=== PATIENT | male | born 1940 | race Caucasian/White ===

== ENCOUNTER 2017-05-31 14:19 | Outpatient (CLI) | payer MEDICARE | END 2017-05-31 14:20 | disposition home or self-care (01) | LOC: CP 14:19 | PROVIDERS: ATTEND Internal Medicine | DX: J44.9 Chronic obstructive pulmonary disease, unspecified (principal) | CPT/HCPCS: 94060 ==

== ENCOUNTER 2017-06-05 10:01 | Emergency (ER) | payer MEDICARE ==
[2017-06-05 10:42] LABS: #Basophils 0.1 thou/uL (0.0-0.2); #Eosinphils 0.1 thou/uL (0.0-0.7); #Neutrophils 9.9 thou/uL (1.40-6.50); %Basophils 0.7 % (0.0-1.0); %Lymphocytes 15.5 % (21.0-51.0); %Monocytes 7.6 % (0.0-10.0); Hematocrit 49.6 % (42.0-52.0); Mean Platelet Volume 7.9 fL (7.4-10.4); Red Blood Cell (RBC) Count 5.42 mill/uL (4.70-6.10); White Blood Cell (WBC) Count 13.1 thou/uL (4.8-10.8)
[2017-06-05 10:51] LABS: Anion Gap 18 mmol/L (10-20); BUN (Urea Nitrogen) 53 mg/dL (8.4-25.7); Calc. Creatinine Clearance 0 mL/min (70-130); Calcium 10.7 mg/dL (7.8-10.44); Carbon Dioxide 22 mmol/L (23-31); Chloride 101 mmol/L (98-107); Estimated GFR-MDRD 36
[2017-06-05 10:58] LABS: Troponin I 0.023 ng/mL (< 0.028)
--- NOTE | 2017-06-05 11:18 | RAD ---
CHEST 2 VIEWS; Date: 06/05/17 HISTORY: Hypotension. Shortness of breath. Chest pain. COMPARISON: 05/18/17. FINDINGS: Normal cardiac silhouette. Pulmonary vessels and hilum are normal. Right costophrenic angle is clear. There is blunting of the left costophrenic angle. Parenchymal changes in left lung base are noted. T here is increased opacification in the right upper lobe suggesting infiltrate superimposed upon chron ic change. No pneumothorax. IMPRESSION: Multilobar pneumonia. Continued surveillance. POS: [facility]
--- NOTE | 2017-07-05 14:38 | EKG ---
Test Reason : HYPOTENSION Blood Pressure : / mmHG Vent. Rate : 077 BPM Atrial Rate : 077 BPM P-R Int : 138 ms QRS Dur : 100 ms QT Int : 392 ms P-R-T Axes : -05 -11 -07 degrees QTc Int : 443 ms Normal sinus rhythm Minimal voltage criteria for LVH, may be normal variant Borderline ECG Confirmed by SHERLEY OLGUIN, RONNI ([id number]), content editor CORA IGLESIAS ([id number]) on 07/05/2017 2:38:08 PM Referred By: SHERLEY Confirmed By:RONNI LEPE MD
== END 2017-06-05 12:49 | disposition home or self-care (01) ==
LOC: ERS 10:01
DX: I95.2 Hypotension due to drugs (principal); T50.905A Adverse effect of unspecified drugs, medicaments and biological substances, initial encounter; E78.5 Hyperlipidemia, unspecified; I10 Essential (primary) hypertension; Z79.82 Long term (current) use of aspirin; Z79.899 Other long term (current) drug therapy
CPT/HCPCS: 71020; 80048; 82553; 84484; 85025; 93005; 96360; 96361

== ENCOUNTER 2017-06-06 13:22 | Emergency (ER) | payer MEDICARE ==
[2017-06-06 14:17] LABS: #Basophils 0.1 thou/uL (0.0-0.2); #Eosinphils 0.1 thou/uL (0.0-0.7); #Lymphocytes 1.7 thou/uL (1.20-3.40); #Monocytes 0.9 thou/uL (0.11-0.59); #Neutrophils 9.1 thou/uL (1.40-6.50); %Basophils 0.8 % (0.0-1.0); %Eosinophils 0.5 % (0.0-10.0); %Lymphocytes 14.1 % (21.0-51.0); %Monocytes 7.5 % (0.0-10.0); Hematocrit 47.1 % (42.0-52.0); Mean Platelet Volume 7.7 fL (7.4-10.4); Red Blood Cell (RBC) Count 5.08 mill/uL (4.70-6.10); White Blood Cell (WBC) Count 11.8 thou/uL (4.8-10.8)
[2017-06-06 14:39] LABS: ALT (SGPT) 399 U/L (8-55); AST (SGOT) 303 U/L (5-34); Alkaline Phosphatase 724 U/L (40-150); Anion Gap 15 mmol/L (10-20); BUN (Urea Nitrogen) 41 mg/dL (8.4-25.7); Bilirubin, Total 2.8 mg/dL (0.2-1.2); Calc. Creatinine Clearance 0 mL/min (70-130); Calcium 9.9 mg/dL (7.8-10.44); Carbon Dioxide 28 mmol/L (23-31); Chloride 96 mmol/L (98-107); Estimated GFR-MDRD 51; Globulin 3.6 g/dL (2.4-3.5); Lipase 173 U/L (8-78); Protein, Total 6.9 g/dL (5.8-8.1)
--- NOTE | 2017-06-06 18:26 | CT ---
CT OF THE ABDOMEN AND PELVIS WITHOUT CONTRAST 06/06/17 PROVIDED CLINICAL HISTORY: Abnormal hepatic enzymes. FINDINGS: The visualized lung bases demonstrate emphysematous changes and left basilar interstitial prominence which may reflect changes of fibrosis. There are innumerable poorly defined hepatic hypodensities present diffusely, highly suspicious for d iffuse hepatic metastatic disease. The solid abdominal organs are suboptimally evaluated without IV contrast material but demonstrate an otherwise unremarkable unenhanced CT appearance with the exception of a partially calcified cystic s tructure at the inferior pole of the right kidney. There is no bowel dilatation, inflammatory fat stranding or lymph node enlargement apparent. There is minimal free intraperitoneal fluid about the right hepatic margin and within the pelvic cul-de-sac. The osseous structures demonstrate no concerning osteoblastic or osteolytic lesions. Bilateral fat co ntaining inguinal hernias are seen, small. Degenerative changes are noted involving the spine. Atherosclerotic vascular calcification is noted. IMPRESSION: 1. Innumerable hypodense masses within the liver compatible with hepatic metastatic disease. Nathalia rce is not evident on the basis of this study. 2. Trace free intraperitoneal fluid, nonspecific. 3. Prominence of the pulmonary interstitium of the left lung base may reflect changes of fibrosi s. POS: [facility]
--- NOTE | 2017-06-06 20:58 | ULT ---
RIGHT UPPER QUADRANT ULTRASOUND: 06/06/17 PROVIDED CLINICAL HISTORY: Elevated LFTs. FINDINGS: Correlation is made with a CT examination performed earlier same date. Markedly heterogeneous appeara nce to the liver is demonstrated compatible with the CT appearance suggesting hepatic disease. No annabelle dence intrahepatic or extrahepatic biliary ductal dilatation. The gallbladder is contracted. Pancreas is largely obscured. Right kidney demonstrates no hydronephrosis or mass. IMPRESSION: Heterogeneous appearance to the liver compatible with the findings on prior CT suggesting diffuse hep atic metastatic disease. POS: [facility]
== END 2017-06-06 19:27 | disposition home or self-care (01) ==
LOC: ERS 13:22
DX: C22.0 Liver cell carcinoma (principal); C79.9 Secondary malignant neoplasm of unspecified site; E78.5 Hyperlipidemia, unspecified; I10 Essential (primary) hypertension; Z79.899 Other long term (current) drug therapy
CPT/HCPCS: 36415; 74176; 76705; 80053; 82150; 83690; 83880; 85025

== ENCOUNTER 2017-06-07 11:01 | Outpatient (CLI) | payer MEDICARE ==
--- NOTE | 2017-06-07 14:44 | CT ---
NONCONTRAST CT OF THE THORAX: Indication: History of metastatic disease within the abdomen and pelvis found on recent CT evaluation . Concern for chest lesion based on chest radiograph. FINDINGS: There is calcification seen within the inferior aspect of both thyroid glands. There is a large right suprahilar mass lesion measuring approximately 2.5 x 5.8 cm in size. The chelsea ns of the lesion are poorly delineated without IV contrast. There is prominent reticular nodularity s een within the right upper lobe suspicious for lymphangitic spread of disease versus post obstructive pneumonia. There are enlarged lymph nodes within the right hilar region and mediastinum. One of the largest in the mediastinum measures 2.1 cm on image 27 of series 2. There is 1.5 cm lesion seen withi n the right paratracheal region. There are scattered coronary artery and thoracic calcifications. No definite enlarged axillary lymph nodes are evident. The upper abdomen is as detailed on the CT abdome n dated 06-06-17. There is severe emphysematous change. No definite pleural effusion or pneumothorax demonstrated. No d efinite acute osseous abnormality is evident. There are scattered degenerative and osteoarthritic lupe nge. IMPRESSION: 1. Large right suprahilar mass with suspected lymphangitic spread of the tumor into the right upper l obe and regional lymph node involving the right hilar region and mediastinum. 2. Emphysema. 3. Calcified lesions in the inferior aspect of both thyroid glands. Recommend thyroid ultrasound for additional characterization. Code T POS: [facility]
== END 2017-06-07 11:02 | disposition home or self-care (01) ==
LOC: CT 11:01
PROVIDERS: ATTEND Internal Medicine
DX: R93.8 Abnormal findings on diagnostic imaging of other specified body structures (principal); J43.9 Emphysema, unspecified; R91.8 Other nonspecific abnormal finding of lung field; E07.89 Other specified disorders of thyroid
CPT/HCPCS: 71250

== ENCOUNTER 2017-06-14 10:39 | Outpatient (CLI) | payer MEDICARE ==
--- NOTE | 2017-06-14 15:33 | NM ---
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 COMPARISON: None. TECHNIQUE: The patient was administered 30.50 millicuries of technetium 99m MDP intravenously. After an appropr iate delay, whole body imaging was performed. FINDINGS: Despite giving an appropriate dose of radiotracer, the overall uptake by the osseous structures is so mewhat less than optimal. Additionally, there appear to be photopenic areas involving the anterior a spect of the left and right kidneys. There are no corresponding abnormalities on recent CT. There a re questionable areas of photopenia involving both knees. Findings may in part be due to inadequate uptake of the tracer. There does appear to be radiotracer localization involving the left and right shoulder due to degenerative change. Additional radiotracer localization involving the cervical spin e, likely due to degenerative change, is noted. No obvious scintigraphic evidence of osseous metastasis. Joint contamination projects over the expected region of the perineum. IMPRESSION: 1. Suboptimal evaluation due to poor uptake of the radiotracer by the osseous structures. No defini te scintigraphic evidence of osseous metastasis. 2. Decreased uptake in both kidneys. Correlate for possible decreased renal function. 3. Possible photopenia involving both knees. Correlate for possible arthroplasty. Of note, the willian flowers is a poor historian. POS: [facility]
== END 2017-06-14 10:40 | disposition home or self-care (01) ==
LOC: NM 10:39
PROVIDERS: ATTEND Internal Medicine Hematology & Oncology
DX: C34.01 Malignant neoplasm of right main bronchus (principal)
CPT/HCPCS: 78306; 85610; 85730; A9503; 36415

== ENCOUNTER 2017-06-15 11:52 | Inpatient (IN) | payer MEDICARE ==
[2017-06-15 13:34] LABS: ALT (SGPT) 1337 U/L (8-55); AST (SGOT) 2067 U/L (5-34); Albumin 2.9 g/dL (3.4-4.8); Alkaline Phosphatase 871 U/L (40-150); Anion Gap 19 mmol/L (10-20); BUN (Urea Nitrogen) 51 mg/dL (8.4-25.7); Bilirubin, Total 12.6 mg/dL (0.2-1.2); Calc. Creatinine Clearance 0 mL/min (70-130); Calcium 8.9 mg/dL (7.8-10.44); Carbon Dioxide 21 mmol/L (23-31); Chloride 91 mmol/L (98-107); Estimated GFR-MDRD 36; Globulin 2.9 g/dL (2.4-3.5); Glucose 98 mg/dL (83-110); Lipase 444 U/L (8-78); Potassium 4.5 mmol/L (3.5-5.1); Protein, Total 5.8 g/dL (5.8-8.1); Sodium 126 mmol/L (136-145)
[2017-06-15 13:38] LABS: Troponin I 0.106 ng/mL (< 0.028)
[2017-06-15 13:49] LABS: CKMB 10.6 ng/mL (0-6.6)
[2017-06-15 13:53] LABS: Band 5 % (5-11); Eosinophils 1 % (0-10); Hemoglobin 14.5 g/dL (14.0-18.0); Lymphocytes 23 % (21-51); MDiff Complete? YES; Mean Corpuscular HGB CONC 33.7 g/dL (32.0-36.0); Mean Corpuscular Hemoglobin 30.6 pg (27.0-31.0); Mean Corpuscular Volume 90.8 fl (80.0-94.0); Mean Platelet Volume 9.7 fL (7.4-10.4); Monocytes 5 % (0-10); Neutrophil 64 % (42-75); Nucleated RBC 3 % (0); PLT Morphology Comment Appears Decreased; Platelet Count 38 thou/uL (130-400); Polychromasia SLIGHT = 2-3 cells (100X) (0-2/hpf); RBC Distribution Width 13.8 % (11.5-14.5); Reactive Lymphocytes 2 % (0-10); Red Blood Cell (RBC) Count 4.74 mill/uL (4.70-6.10); White Blood Cell (WBC) Count 11.2 thou/uL (4.8-10.8)
--- NOTE | 2017-06-15 14:08 | RAD ---
CHEST ONE VIEW: History: Hypotension, chest pain, dyspnea. Comparison: 06-01-17 FINDINGS: Cardiac silhouette is magnified by projection. Right suprahilar mass and infiltrates involving the ri ght upper and left lower lobes are similar in appearance to the prior study. Infiltrate at the right lower lobe has progressed somewhat. Mediastinum remains midline. No evidence of pneumothorax. monitor technician leads overlie the chest. IMPRESSION: Interval progression of right lower lobe infiltrate. Right upper lobe and left lower lobe infiltrates appear stable. POS: [facility]
[2017-06-15 14:15] LABS: INR-International Normal Ratio 2.2; PTT 42.7 SEC (22.9-36.1); Prothrombin Time 24.8 SEC (12.0-14.7)
[2017-06-15 15:15] LABS: Bilirubin Large (Negative); Clarity TURBID (Clear); Glucose, Urine (Dipstick) Negative (Negative); Leukocyte Trace (Negative); Nitrite Negative (Negative); Specific Gravity, Urine 1.036 (1.002-1.036); Urobilinogen 0.2 mg/dL (0.2-1.0); pH, Urine 5.5 (5.0-9.0)
[2017-06-15 15:21] LABS: Bacteria/HPF None Seen HPF (None Seen)
[2017-06-15 15:36] LABS: Blood, Urine Large (Negative); Protein, Urine (Dipstick) 100 mg/dL (Neg-Trace)
[2017-06-15 15:37] LABS: Crystals/HPF 1+ AMORPH URATES HPF (Negative); Renal Epithelial 0-3 HPF (0-3); Transitional Epithelial 0-3 HPF (0-3); Yeast-All Forms None Seen HPF (None Seen)
[2017-06-15 15:38] LABS: Hyaline Casts/LPF 0-3 HYALINE CAST LPF (0-3 Hyaline)
[2017-06-15] MEDS ORDERED: Acetaminophen 325 MG TAB PO PRN (16:18)
[2017-06-15] MEDS ORDERED: Ondansetron HCl/PF 4 MG/2 ML Vial IVP PRN (16:18)
[2017-06-15] MEDS ORDERED: cefTRIAXone\\ROCEPHIN 1 GM in Sodium Chloride 0.9% 100 ML IVPB SCH (16:30)
--- NOTE | 2017-06-15 17:19 | HP ---
PRIMARY CARE PROVIDER: Dr. Katelyn Carr. ONCOLOGIST: Dr. Fallon Walter. HISTORY OF PRESENT ILLNESS: The patient was in Dr. Carr's office today. He had a blood pressure o f about 70, sent to the emergency room by ambulance, received IV fluids. He says he was a little andrei rt of breath walking, reports he has been anorectic with poor intake. He has had a recent diagn osis of cancer in the liver and lungs, for which a diagnosis is yet to be made. He had no dizziness, no chest pain, and no nausea. PAST MEDICAL HISTORY: He had a recent diagnosis of a valve problem, which he was being evaluated for by Dr. Cintron when the same situation occurred about 10 days ago. He has a history of hypertensi on and elevated cholesterol. He is currently off all his medications. He was on, prior to all of is, were Lipitor 40 mg a day, hydrochlorothiazide 25 mg a day, losartan 25 mg a day, metoprolol 100 m g a day. ALLERGIES: He has no known drug allergies. PAST SURGICAL HISTORY: Pertinent only for a distant tonsillectomy. FAMILY HISTORY: His mother's medical history included a valve replacement and his father in the 60s or 70s of bleeding peptic ulcer disease. SOCIAL HISTORY: He is . FULL CODE status. , next of kin, is surrogate decision maker at bedside. He quit smoking 35 years ago; drinks an occasional beer. REVIEW OF SYSTEMS: General: No headaches, dizziness, or fainting. Eyes: No double vision, blurred vision, flashing lights. Ears, Nose, and Throat: No ear pain or drainage. No nasal bleeding. No trouble swallowing. No oral bleeding. Cardiac: No chest pain, orthopnea, or paroxysmal nocturnal d yspnea. Respiratory: Minimal dyspnea on exertion. No cough or wheezing. Gastrointestinal: No [place], vomiting, diarrhea, or constipation. He states his stools are brown. Genitourinary: No hematu carleen, dysuria, or nocturia. Musculoskeletal: Swelling in his legs. No pain. Neurologic: No stroke s, seizures, or focal weakness. Psychiatric: No anxiety or depression. Skin: He has easy bruising with IV draws, etc. Otherwise, negative. Heme/Lymph: No tender or swollen lymph nodes. PHYSICAL EXAMINATION: GENERAL: He is an alert, cooperative man, at bedside. VITAL SIGNS: Blood pressure currently 117/72, pulse 93, respirations 24, temperature 97.3, O2 sat 10 0 on room air. HEENT: Examination of his head, eyes, ears, nose, and throat reveal pupils equal, round, and reactiv e. Extraocular movements are intact. Sclerae icteric. Tympanic membranes are clear. Nose is clear . Oral mucous membranes are dry. NECK: No jugular venous distention, adenopathy, or thyromegaly. CHEST: Likely clear to auscultation and percussion. HEART: Had a regular rate and rhythm. First and second heart sounds were clear. There was 2/6 syst olic murmur; it was difficult to audible. Heart had first and second heart sounds appeared normal. ABDOMEN: Protuberant with what appeared to be a markedly enlarged liver, even to the left of the ant erior midline. It was coarse, no bruits. Bowel sounds present. No tenderness. EXTREMITIES: Reveal 2+ edema with no cyanosis or clubbing. PULSES: Carotid, radial, femoral, and dorsalis pedis pulses palpable and symmetric. SKIN: Has a jaundiced appearance with some small ecchymoses from phlebotomies and IVs on his arms. LYMPH: Survey is negative. NEUROLOGICAL: Cranial nerves II-XII are intact. Moves all extremities. Deep tendon reflexes symmet talib. X-RAY FINDINGS: Chest x-ray, reviewed by me, reveals a hazy infiltrate in the left lower lung field and some patchy infiltrates in the right lung field, some hilar prominence on the right, no cardiomeg marvin. LABORATORY DATA: Sodium is 126, potassium 4.5, BUN 51, creatinine 1.86; I reviewed, these are marked ly elevated from previous. Lactic acid 3.8, bilirubin 12.6, AST 2067, ALT 1337. Troponin is 0.106. His white count is elevated at 11.2, platelet count diminished at 38,000, hemoglobin 14.5. ADMITTING DIAGNOSES: 1. Involvement of the liver and lungs with what appears to be metastatic carcinoma, unknown primary. 2. Hypotension. 3. Acute renal failure. 4. Hyponatremia. 5. Probable pneumonia. 6. History of hypertension. 7. History of dyslipidemia. 8. Jaundice. 9. Coagulopathy. The patient will be placed in the hospital on IV fluids at 125 mL an hour normal saline. CBC and com p metabolic profile will be repeated tomorrow. Dr. Walter will be consulted. Blood cultures have b een drawn. The patient will be started on Rocephin and Zithromax for pneumonia. DISCUSSION: Definitely a difficult situation whether this is simple destruction of liver tissue or o bstructive jaundice. I suspect it is the latter. He has evidence of a coagulopathy with INR 2.2 and no mention of an obstructive pattern on the CAT scan or abdominal ultrasound. The ultrasound sugges ts no evidence of intrahepatic or extrahepatic dilatation.
[2017-06-15] MEDS ORDERED: Azithromycin 500 MG in Sodium Chloride 0.9% 250 ML 250 ML IVPB SCH (18:00)
[2017-06-15] MEDS: Sodium Chloride 0.9% 1,000 ML IV SCH (19:41)
[2017-06-15] MEDS: cefTRIAXone\\ROCEPHIN 1 GM, Syringe 0.4 ML in Sterile Water 9.6 ML SLOW IVP SCH (19:52)
[2017-06-15] MEDS: Azithromycin 500 MG in Sodium Chloride 0.9% 250 ML 250 ML IVPB SCH (20:50)
[2017-06-15 21:33] VITALS: BMI 30.4
[2017-06-15 22:27] LABS: Lactic Acid 1.9 mmol/L (0.5-2.2)
[2017-06-16] MEDS: Sodium Chloride 0.9% 1,000 ML IV SCH ×2 (05:04→14:21)
[2017-06-16 06:07] LABS: ALT (SGPT) 1084 U/L (8-55); AST (SGOT) 1473 U/L (5-34); Albumin 2.4 g/dL (3.4-4.8); Alkaline Phosphatase 742 U/L (40-150); Anion Gap 16 mmol/L (10-20); BUN (Urea Nitrogen) 56 mg/dL (8.4-25.7); Bilirubin, Total 11.8 mg/dL (0.2-1.2); Calc. Creatinine Clearance 52 mL/min (70-130); Calcium 7.8 mg/dL (7.8-10.44); Carbon Dioxide 17 mmol/L (23-31); Chloride 98 mmol/L (98-107); Estimated GFR-MDRD 46; Globulin 2.5 g/dL (2.4-3.5); Glucose 76 mg/dL (83-110); Potassium 4.1 mmol/L (3.5-5.1); Protein, Total 4.9 g/dL (5.8-8.1); Sodium 127 mmol/L (136-145)
[2017-06-16 06:22] LABS: Band 5 % (5-11); Hemoglobin 13.1 g/dL (14.0-18.0); Lymphocytes 25 % (21-51); MDiff Complete? YES; Mean Corpuscular HGB CONC 32.9 g/dL (32.0-36.0); Mean Corpuscular Hemoglobin 29.8 pg (27.0-31.0); Mean Corpuscular Volume 90.3 fl (80.0-94.0); Mean Platelet Volume 10.1 fL (7.4-10.4); Metamyelocyte 1 % (0-0); Monocytes 1 % (0-10); Myelocyte 2 % (0-0); Neutrophil 66 % (42-75); Nucleated RBC 6 % (0); PLT Morphology Comment Appears Decreased; Platelet Count 33 thou/uL (130-400); RBC Distribution Width 13.9 % (11.5-14.5); Red Blood Cell (RBC) Count 4.39 mill/uL (4.70-6.10); White Blood Cell (WBC) Count 8.3 thou/uL (4.8-10.8)
[2017-06-16] MEDS ORDERED: Phytonadione 10 MG/ML AMP PO SCH (11:45)
[2017-06-16] MEDS ORDERED: Phytonadione 10 MG in Sodium Chloride 0.9% 50 ML IVPB SCH (12:00)
--- NOTE | 2017-06-16 12:19 | EKG ---
Test Reason : Blood Pressure : / mmHG Vent. Rate : 086 BPM Atrial Rate : 086 BPM P-R Int : 154 ms QRS Dur : 092 ms QT Int : 386 ms P-R-T Axes : 030 -12 015 degrees QTc Int : 461 ms Normal sinus rhythm Normal ECG Confirmed by LOREN KEMP ([id number]), script editor CORA IGLESIAS ([id number]) on 06/16/2017 12:19:10 PM Referred By: Confirmed By:LOREN KEMP
[2017-06-16 13:55] LABS: INR-International Normal Ratio 2.5; Prothrombin Time 27.8 SEC (12.0-14.7)
--- NOTE | 2017-06-16 15:52 | PDOC.PN ---
- Subjective Encounter Start Date: 06/16/17 Encounter Start Time: 14:30 Pt seen for followup re; liver metastases. Denies chest pain, shortness of breath, fevers or chills. - Objective MAR Reviewed: Yes Vital Signs & Weight: Vital Signs (12 hours) Temp Pulse Resp BP Pulse Ox 06/16/17 11:35 97.3 F L 96 18 110/66 92 L 06/16/17 08:00 97.9 F 101 H 18 92 L 06/16/17 07:31 97.9 F 101 H 18 96/65 92 L 06/16/17 04:00 97.6 F 97 20 115/68 92 L Weight Weight 189 lb I&O: 06/15/17 06/16/17 06/17/17 06:59 06:59 06:59 Intake Total 2110 Output Total 450 Balance 1660 Result Diagrams: 06/16/17 05:13 06/16/17 05:13 Phys Exam - Physical Examination Constitutional: NAD Scleral icterus Neck: supple Respiratory: clear to auscultation bilateral Cardiovascular: RRR Gastrointestinal: soft Neurological: moves all 4 limbs Psychiatric: normal affect Deviation from normal: Oriented to person, place, knows it is towards end of May 2017 Skin: no rash Dx/Plan (1) Hepatic metastases Code(s): C78.7 - SECONDARY MALIG NEOPLASM OF LIVER AND INTRAHEPATIC BILE DUCT Status: Acute (2) Pneumonia Code(s): J18.9 - PNEUMONIA, UNSPECIFIED ORGANISM Status: Acute (3) Coagulopathy Status: Acute (4) Dyslipidemia Code(s): E78.5 - HYPERLIPIDEMIA, UNSPECIFIED Status: Chronic (5) HTN (hypertension) Code(s): I10 - ESSENTIAL (PRIMARY) HYPERTENSION Status: Chronic - Plan plan discussed w/ family, continue antibiotics, PT/OT, out of bed/ambulate, DVT proph w/SCDs * . Discussed with oncology service. Pt needs biopsy of liver met, likely for biopsy once coagulopathy improves. Appreciate palliative care service input. Continue IV antibiotics as below. Review of Systems - Review of Systems Constitutional: negative: fever, chills, sweats, weakness, malaise Respiratory: negative: Cough, Dry, Shortness of Breath, Hemoptysis, SOB with Excertion, Pleuritic Pain, Sputum, Wheezing Cardiovascular: negative: chest pain, palpitations, orthopnea, paroxysmal nocturnal dyspnea, edema, light headedness - Medications/Allergies Allergies/Adverse Reactions: Allergies Allergy/AdvReac Type Severity Reaction Status Date / Time No Known Drug Allergies Allergy Verified 06/15/17 22:06 Medications: Current Medications Acetaminophen (Tylenol) 650 mg PO Q4H PRN PRN Reason: Headache/Fever or Pain Dexamethasone (Decadron) 4 mg PO BID-[facility] Sodium Chloride (Normal Saline 0.9%) 1,000 mls @ 125 mls/hr IV .Q8H [facility] Last Admin: 06/16/17 14:21 Dose: 1,000 mls Ceftriaxone Sodium 1 gm/ (Syringe 0.4 ml/ Sterile Water) 10 mls @ 120 mls/hr SLOW IVP 2000 [facility] Last Admin: 06/15/17 19:52 Dose: 10 mls Azithromycin 500 mg/ Sodium (Chloride) 250 mls @ 250 mls/hr IVPB 2100 [facility] Last Admin: 06/15/17 20:50 Dose: 250 mls Ondansetron HCl (Zofran) 4 mg IVP Q6H PRN PRN Reason: Nausea/Vomiting
--- NOTE | 2017-06-16 17:17 | PDOC.PULCN ---
Pulmonology Consult: HPI - Date of Consult Date: 06/16/17 Time: 17:12 - Consult Details Reason for Consult: Mediastinal/lung mass. Needs tissue dx Requesting Physician: Daysi - History of Present Illness HPI: SHALA LINARES is a 76 year-old M who was admitted from his PCP's office yesterday with low BP. He personally provided history to me. Family members added to history, and I spent time reviewing his old records. He has been feeling bad for quite some time, but is nonspecific in regards to location, modifying factors, etc. He has had no weight gain or loss. No hemoptysis. No SOB. Had pneumonia several weeks ago. Pulmonology Consult: ROS - Review of Systems All systems: reviewed and no additional remarkable complaints except as stated Constitutional: malaise Respiratory: no reported symptoms Pulmonology Consult: [facility] Source: patient, family, nurse Past Medical History: Valvular heart disease HTN Hyperlipidemia Previous T&A - Family History Pertinent family history: Valvular heart disease Hypertension PUD - Social History Smoking Status: Former smoker (quit smoking over 30 years ago) Alcohol Use: rarely Drug Use History: none Living Situation: Pulmonology Consult: Meds - Medications MAR Reviewed: Yes Medications: Current Medications Acetaminophen (Tylenol) 650 mg PO Q4H PRN PRN Reason: Headache/Fever or Pain Cholecalciferol (Vitamin D3) 1,000 units PO QAM MARLENE Dexamethasone (Decadron) 4 mg PO BID-[facility]LENE Donepezil HCl (Aricept) 10 mg PO HS MARLENE Escitalopram Oxalate (Lexapro) 10 mg PO DAILY [facility] Sodium Chloride (Normal Saline 0.9%) 1,000 mls @ 125 mls/hr IV .Q8H COUNTS INCLUDE 234 BEDS AT THE [facility] Last Admin: 06/16/17 14:21 Dose: 1,000 mls Ceftriaxone Sodium 1 gm/ (Syringe 0.4 ml/ Sterile Water) 10 mls @ 120 mls/hr SLOW IVP 2000 COUNTS INCLUDE 234 BEDS AT THE [facility] Last Admin: 06/15/17 19:52 Dose: 10 mls Azithromycin 500 mg/ Sodium (Chloride) 250 mls @ 250 mls/hr IVPB 2100 COUNTS INCLUDE 234 BEDS AT THE [facility] Last Admin: 06/15/17 20:50 Dose: 250 mls Iron/Minerals/Multivitamins (Theragran M) 1 tab PO DAILY MARLENE Multivitamins/Zinc (Stress 600 With Zinc) 1 tab PO QAM MARLENE Ondansetron HCl (Zofran) 4 mg IVP Q6H PRN PRN Reason: Nausea/Vomiting As an outpt he takes: Lipitor HCTZ Losartan Metoprolol - Allergies Allergies/Adverse Reactions: Allergies Allergy/AdvReac Type Severity Reaction Status Date / Time No Known Drug Allergies Allergy Verified 06/15/17 22:06 Pulmonology Consult: PE - Physical Exam Constitutional: NAD HEENT: PERRLA, moist MMs, sclera anicteric Neck: no nodes, no JVD Cardiovascular: RRR Deviation from normal: 2/6 ELIO Respiratory: clear to auscultation bilaterally Gastrointestinal: soft, positive bowel sounds Deviation from normal: liver span increased Musculoskeletal: no edema Neurological: non-focal, normal sensation, moves all 4 limbs Lymphatic: no nodes Psychiatric: normal affect, A&O x 3 Skin: no rash Pulmonology Consult: Results - Labs Result Diagrams: 06/16/17 05:13 06/16/17 05:13 Lab results: Laboratory Results WBC 8.3 thou/uL (4.8-10.8) 06/16/17 05:13 RBC 4.39 mill/uL (4.70-6.10) L 06/16/17 05:13 Hgb 13.1 g/dL (14.0-18.0) L 06/16/17 05:13 Hct 39.7 % (42.0-52.0) L 06/16/17 05:13 MCV 90.3 fl (80.0-94.0) 06/16/17 05:13 MCH 29.8 pg (27.0-31.0) 06/16/17 05:13 MCHC 32.9 g/dL (32.0-36.0) 06/16/17 05:13 RDW 13.9 % (11.5-14.5) 06/16/17 05:13 Plt Count 33 thou/uL (130-400) L 06/16/17 05:13 MPV 10.1 fL (7.4-10.4) 06/16/17 05:13 Neutrophils % (Manual) 66 % (42-75) 06/16/17 05:13 Band Neuts % (Manual) 5 % (5-11) 06/16/17 05:13 Lymphocytes % (Manual) 25 % (21-51) 06/16/17 05:13 Reactive Lymphs % 2 % (0-10) 06/15/17 13:02 Monocytes % (Manual) 1 % (0-10) 06/16/17 05:13 Eosinophils % (Manual) 1 % (0-10) 06/15/17 13:02 Metamyelocytes % (Man) 1 % (0-0) H 06/16/17 05:13 Myelocytes % 2 % (0-0) H 06/16/17 05:13 Nucleated RBCs # (Man) 6 % (0) H 06/16/17 05:13 Plt Morphology Comment Appears Decreased L 06/16/17 05:13 Polychromasia SLIGHT = 2-3 cells (100X) (0-2/hpf) 06/15/17 13:02 PT 27.8 SEC (12.0-14.7) H 06/16/17 13:35 INR 2.5 06/16/17 13:35 APTT 42.7 SEC (22.9-36.1) H 06/15/17 13:06 Sodium 127 mmol/L (136-145) L 06/16/17 05:13 Potassium 4.1 mmol/L (3.5-5.1) 06/16/17 05:13 Chloride 98 mmol/L (98-107) 06/16/17 05:13 Carbon Dioxide 17 mmol/L (23-31) L 06/16/17 05:13 Anion Gap 16 mmol/L (10-20) 06/16/17 05:13 BUN 56 mg/dL (8.4-25.7) H 06/16/17 05:13 Creatinine 1.50 mg/dL (0.6-1.3) H 06/16/17 05:13 Estimated GFR (MDRD) 46 06/16/17 05:13 Glucose 76 mg/dL (83-110) L 06/16/17 05:13 Lactic Acid 1.9 mmol/L (0.5-2.2) 06/15/17 22:01 Calcium 7.8 mg/dL (7.8-10.44) 06/16/17 05:13 Total Bilirubin 11.8 mg/dL (0.2-1.2) H 06/16/17 05:13 AST 1473 U/L (5-34) H 06/16/17 05:13 ALT 1084 U/L (8-55) H 06/16/17 05:13 Alkaline Phosphatase 742 U/L (40-150) H 06/16/17 05:13 CK-MB (CK-2) 10.6 ng/mL (0-6.6) H* 06/15/17 13:02 Troponin I 0.106 ng/mL (< 0.028) H 06/15/17 13:02 Serum Total Protein 4.9 g/dL (5.8-8.1) L 06/16/17 05:13 Albumin 2.4 g/dL (3.4-4.8) L 06/16/17 05:13 Globulin 2.5 g/dL (2.4-3.5) 06/16/17 05:13 Albumin/Globulin Ratio 1.0 g/dL (1.2-2.2) L 06/16/17 05:13 Lipase 444 U/L (8-78) H 06/15/17 13:02 Urine Color Lewis (Yellow) H 06/15/17 14:53 Urine Clarity TURBID (Clear) 06/15/17 14:53 Urine pH 5.5 (5.0-9.0) 06/15/17 14:53 Ur Specific [place] 1.036 (1.002-1.036) 06/15/17 14:53 Urine Protein 100 mg/dL (Neg-Trace) H 06/15/17 14:53 Urine Glucose (UA) Negative mg/dL (Negative) 06/15/17 14:53 Urine Ketones Negative mg/dL (Negative) 06/15/17 14:53 Urine Blood Large (Negative) H 06/15/17 14:53 Urine Nitrite Negative (Negative) 06/15/17 14:53 Urine Bilirubin Large (Negative) H 06/15/17 14:53 Urine Urobilinogen 0.2 mg/dL (0.2-1.0) 06/15/17 14:53 Ur Leukocyte Esterase Trace (Negative) H 06/15/17 14:53 Urine RBC 4-6 HPF (0-3) 06/15/17 14:53 Urine WBC 4-6 HPF (0-3) H 06/15/17 14:53 Ur Squamous Epith Cells 7-10 HPF (0-3) H 06/15/17 14:53 Ur Transition Epith Cell 0-3 HPF (0-3) 06/15/17 14:53 Ur Renal Epithelial Cell 0-3 HPF (0-3) 06/15/17 14:53 Urine Crystals 1+ AMORPH URATES HPF (Negative) 06/15/17 14:53 Urine Bacteria None Seen HPF (None Seen) 06/15/17 14:53 Hyaline Casts 0-3 HYALINE CAST LPF (0-3 Hyaline) 06/15/17 14:53 Other Casts 4-6 COARSE GRAN LPF (0-3 Hyaline) H0-3 FINELY GRAN LPF (0-3 Hyaline) H0-3 BROAD CASTS LPF (0-3 Hyaline) H 06/15/17 14:53 Other Casts 4-6 COARSE GRAN LPF (0-3 Hyaline) H0-3 FINELY GRAN LPF (0-3 Hyaline) H0-3 BROAD CASTS LPF (0-3 Hyaline) H 06/15/17 14:53 Other Casts 4-6 COARSE GRAN LPF (0-3 Hyaline) H0-3 FINELY GRAN LPF (0-3 Hyaline) H0-3 BROAD CASTS LPF (0-3 Hyaline) H 06/15/17 14:53 Urine Yeast None Seen HPF (None Seen) 06/15/17 14:53 - Radiology Interpretation CT scan - chest Status: image reviewed by me, report reviewed by me (Has large superior mediatinal mass, and it maybe going into RUL, hard to tell. Has liver full of mets) Pulmonology Consult: A/P - Problem (1) Mediastinal mass Current Visit: Yes Status: Acute (2) Lung mass Current Visit: Yes Code(s): R91.8 - OTHER NONSPECIFIC ABNORMAL FINDING OF LUNG FIELD Status: Acute (3) Hepatic metastases Current Visit: Yes Code(s): C78.7 - SECONDARY MALIG NEOPLASM OF LIVER AND INTRAHEPATIC BILE DUCT Status: Acute (4) Coagulopathy Current Visit: Yes Status: Acute (5) Thrombocytopenia Current Visit: Yes Code(s): D69.6 - THROMBOCYTOPENIA, UNSPECIFIED Status: Acute - Time Time: 50% of the time was spent in coordination of care (as documented) at patient's floor/unit and/or counseling patient. Time with Patient: greater than 50 minutes - Plan Plan: Best approach for biopsy would be liver biopsy. Not sure if Bronchoscopy would result in a tissue dx, since the lesion appears to be based in mediastinum (LN) and may not be invading lung field. The coagulopathy and thrombocytopenia would need to be corrected before any approach could be taken. Unlikely that tissue dx could be done prior to Monday, given long holiday weekend. Will follow with you.
[2017-06-16] MEDS: Dexamethasone 4 MG TAB PO SCH (19:25)
[2017-06-16] MEDS: cefTRIAXone\\ROCEPHIN 1 GM, Syringe 0.4 ML in Sterile Water 9.6 ML SLOW IVP SCH (19:58)
[2017-06-16] MEDS ORDERED: Furosemide 40 MG/4 ML VIAL SLOW IVP SCH (20:30)
[2017-06-16] MEDS: Azithromycin 500 MG in Sodium Chloride 0.9% 250 ML 250 ML IVPB SCH (21:47)
[2017-06-16] MEDS: Donepezil HCl 10 MG TAB PO SCH (21:55)
[2017-06-17] MEDS ORDERED: Albuterol Sulfate 2.5 mg/3 ml Neb NEB SCH (00:15)
[2017-06-17 04:52] LABS: Hemoglobin 12.2 g/dL (14.0-18.0); Mean Corpuscular HGB CONC 34.1 g/dL (32.0-36.0); Mean Corpuscular Hemoglobin 30.9 pg (27.0-31.0); Mean Corpuscular Volume 90.5 fl (80.0-94.0); Mean Platelet Volume 9.5 fL (7.4-10.4); Platelet Count 28 thou/uL (130-400); RBC Distribution Width 13.9 % (11.5-14.5); Red Blood Cell (RBC) Count 3.95 mill/uL (4.70-6.10); White Blood Cell (WBC) Count 10.3 thou/uL (4.8-10.8)
[2017-06-17 04:56] LABS: INR-International Normal Ratio 1.9; PTT 39.1 SEC (22.9-36.1)
[2017-06-17 05:04] LABS: ALT (SGPT) 952 U/L (8-55); AST (SGOT) 999 U/L (5-34); Albumin 2.4 g/dL (3.4-4.8); Alkaline Phosphatase 725 U/L (40-150); Anion Gap 16 mmol/L (10-20); BUN (Urea Nitrogen) 65 mg/dL (8.4-25.7); Bilirubin, Total 14.2 mg/dL (0.2-1.2); Calc. Creatinine Clearance 0 mL/min (70-130); Calcium 7.6 mg/dL (7.8-10.44); Carbon Dioxide 18 mmol/L (23-31); Chloride 97 mmol/L (98-107); Estimated GFR-MDRD 42; Globulin 2.4 g/dL (2.4-3.5); Glucose 105 mg/dL (83-110); Potassium 4.1 mmol/L (3.5-5.1); Protein, Total 4.8 g/dL (5.8-8.1); Sodium 127 mmol/L (136-145)
[2017-06-17 05:12] LABS: Band 13 % (5-11); Lymphocytes 21 % (21-51); MDiff Complete? YES; Metamyelocyte 5 % (0-0); Monocytes 5 % (0-10); Myelocyte 2 % (0-0); Neutrophil 54 % (42-75); Nucleated RBC 2 % (0); PLT Morphology Comment Appears Decreased; RBC Morphology Normal
[2017-06-17] MEDS: Dexamethasone 4 MG TAB PO SCH ×2 (08:15→17:28)
[2017-06-17] MEDS: Escitalopram Oxalate 10 mg Tablet PO SCH (08:16)
[2017-06-17] MEDS: Stress 600 With Zinc 1 TAB PO SCH (08:16)
[2017-06-17] MEDS: Multivitamin W/ Minerals 1 TAB PO SCH (08:16)
--- NOTE | 2017-06-17 08:30 | RAD ---
PORTABLE CHEST ONE VIEW: 06/17/2017 12:33 a.m. HISTORY: Change in respiratory status. COMPARISON: 06/15/2017 FINDINGS: The heart size is prominent but stable. A right suprahilar mass and infiltrates in the right upper l obe and left lower lobe are again seen. Mild infiltrate in the right lung base is again noted. No p neumothoraces or large effusions are seen. IMPRESSION: Stable exam. POS: [facility]
[2017-06-17] MEDS ORDERED: Ondansetron HCl/PF 10 MG in Sodium Chloride 0.9% 50 ML IVPB PRN (11:57)
--- NOTE | 2017-06-17 11:57 | PDOC.PN ---
- Subjective Encounter Start Date: 06/17/17 Encounter Start Time: 07:20 Pt seen for followup re: liver metastases. Denies chest pain. Has SOBOE. No fevers or chills. - Objective Resuscitation Status: Resuscitation Status DNR:Do Not Resuscitate MAR Reviewed: Yes Vital Signs & Weight: Vital Signs (12 hours) Temp Pulse Resp BP Pulse Ox 06/17/17 11:18 97.3 F L 99 20 109/67 95 06/17/17 08:00 97.3 F L 101 H 20 95 06/17/17 07:35 97.3 F L 101 H 20 110/67 95 06/17/17 04:00 97.8 F 94 18 107/62 2 L 06/17/17 00:31 98 06/17/17 00:30 98 06/17/17 00:00 96 Weight Weight 170 lb I&O: 06/16/17 06/17/17 06/18/17 06:59 06:59 06:59 Intake Total 2110 663 Output Total 450 300 Balance 1660 363 Result Diagrams: 06/17/17 04:38 06/17/17 04:38 Phys Exam - Physical Examination Constitutional: NAD Scleral icterus Neck: no JVD Respiratory: clear to auscultation bilateral Cardiovascular: RRR Gastrointestinal: soft Neurological: moves all 4 limbs Psychiatric: normal affect Skin: no rash Dx/Plan (1) Hepatic metastases Code(s): C78.7 - SECONDARY MALIG NEOPLASM OF LIVER AND INTRAHEPATIC BILE DUCT Status: Acute (2) Pneumonia Code(s): J18.9 - PNEUMONIA, UNSPECIFIED ORGANISM Status: Acute (3) Coagulopathy Status: Acute (4) Dyslipidemia Code(s): E78.5 - HYPERLIPIDEMIA, UNSPECIFIED Status: Chronic (5) HTN (hypertension) Code(s): I10 - ESSENTIAL (PRIMARY) HYPERTENSION Status: Chronic - Plan plan discussed w/ family, continue antibiotics * . INR improving. Likely liver met biopsy early next week. Monitor vital signs, titrate antihypertensives as needed. Ambulate pt. Continue antibiotics as below. Review of Systems - Review of Systems Constitutional: weakness Respiratory: SOB with Excertion. negative: Cough, Dry, Shortness of Breath, Hemoptysis, Pleuritic Pain, Sputum, Wheezing Cardiovascular: negative: chest pain, palpitations, orthopnea, paroxysmal nocturnal dyspnea, edema, light headedness - Medications/Allergies Allergies/Adverse Reactions: Allergies Allergy/AdvReac Type Severity Reaction Status Date / Time No Known Drug Allergies Allergy Verified 06/15/17 22:06 Medications: Current Medications Acetaminophen (Tylenol) 650 mg PO Q4H PRN PRN Reason: Headache/Fever or Pain Cholecalciferol (Vitamin D3) 1,000 units PO QAM [facility] Last Admin: 06/17/17 08:16 Dose: 1,000 units Dexamethasone (Decadron) 4 mg PO BID-WM [facility] Last Admin: 06/17/17 08:15 Dose: 4 mg Donepezil HCl (Aricept) 10 mg PO HS [facility] Last Admin: 06/16/17 21:55 Dose: 10 mg Escitalopram Oxalate (Lexapro) 10 mg PO DAILY [facility] Last Admin: 06/17/17 08:16 Dose: 10 mg Ceftriaxone Sodium 1 gm/ (Syringe 0.4 ml/ Sterile Water) 10 mls @ 120 mls/hr SLOW IVP 2000 [facility] Last Admin: 06/16/17 19:58 Dose: 10 mls Azithromycin 500 mg/ Sodium (Chloride) 250 mls @ 250 mls/hr IVPB 2100 [facility] Last Admin: 06/16/17 21:47 Dose: 250 mls Iron/Minerals/Multivitamins (Theragran M) 1 tab PO DAILY [facility] Last Admin: 06/17/17 08:16 Dose: 1 tab Multivitamins/Zinc (Stress 600 With Zinc) 1 tab PO QAM [facility] Last Admin: 06/17/17 08:16 Dose: 1 tab Ondansetron HCl (Zofran) 4 mg IVP Q6H PRN PRN Reason: Nausea/Vomiting Sodium Chloride (Flush - Normal Saline) 10 ml IVF Q12HR [facility] Last Admin: 06/16/17 19:59 Dose: 10 ml Sodium Chloride (Flush - Normal Saline) 10 ml IVF PRN PRN PRN Reason: Saline Flush Last Admin: 06/16/17 20:33 Dose: 10 ml
[2017-06-17] MEDS ORDERED: Dexamethasone 10 MG in Sodium Chloride 0.9% 50 ML IVPB PRN (11:58)
[2017-06-17] MEDS ORDERED: SODIUM CHLORIDE 0.9% IVPB SCH (12:00)
[2017-06-17] MEDS ORDERED: CARBOPLATIN IVPB SCH (12:00)
[2017-06-17] MEDS ORDERED: Ondansetron HCl/PF 10 MG in Sodium Chloride 0.9% 50 ML IVPB SCH (12:00)
[2017-06-17] MEDS ORDERED: Dexamethasone 10 MG in Sodium Chloride 0.9% 50 ML IVPB SCH (12:00)
[2017-06-17] MEDS ORDERED: Dexamethasone 10 MG, Ondansetron HCl/PF 10 MG in Sodium Chloride 0.9% 50 ML IVPB SCH (12:30)
--- NOTE | 2017-06-17 18:24 | CON ---
DATE OF CONSULTATION: 06/17/2017 HISTORY: The patient seems to be alert and oriented. However, he has deep sighing breathing often s een in impending hepatic encephalopathy. He is not having pain. PT/INR today is 1.9. CBC shows low er platelet count of 28,000 with normal white cells and hemoglobin. He has nucleated RBC in peripher al blood and has metamyelocytes and myelocytes. This might be a future of leuko-erythroblastic pictu re raising the possibility of bone marrow metastasis responsible for thrombocytopenia. Chemistry pro file shows hyponatremia with serum sodium 127. BUN 65, creatinine 1.61. Total bilirubin today is 14 .2. AST, ALT and alkaline phosphatase are grossly elevated. Albumin is 2.4. PHYSICAL EXAMINATION: VITAL SIGNS: Blood pressure 109/67, temperature 97, pulse 99. I had a very long and lengthy discussion with the patient, his , his son and his sister. This wa s explained to them that we do not have an established diagnosis of cancer. My suspicion is that he likely has lung cancer, hyponatremia favors the diagnosis of a small cell carcinoma. I raised the po ssibility of giving him chemotherapy in the absence of histologic diagnosis. I have never done that before. However, this patient has rapidly progressive tumor. We are in long weekend and I am not ford re if we have ever be able to get a biopsy in view of low platelet count and prolonged pro time. La nwhile, the patient might be going into hepatitic encephalopathy also with worsening liver function s tudies. I think he can receive chemotherapy with the dose adjusted carboplatin for creatinine cleara nce. It might be too late but waiting 3, 4, 5 days is not going to make it any better. It is also p ossible that chemotherapy might just might hasten up the onset of hepatic encephalopathy. All this w as explained to the patient and his family. After considering the options of not doing chemotherapy today versus holding things still the possibility of biopsy next week, the family decided to proceed with chemotherapy in the absence of an established diagnosis of malignancy. I also discussed DNR wit h the patient and both the patient and his family agreed for DNR status.
--- NOTE | 2017-06-17 19:23 | RAD ---
AP VIEW OF THE CHEST 06/17/17 INDICATION: Adventitious breath sounds. COMPARISON: Prior chest radiograph dated 06/17/17. IMPRESSION: Right suprahilar mass, right upper lobe and left lower lobe air space opacities are similar. The exam ination is not appreciably changed from the recent comparison dated 06/17/17 at 12:33 a.m. POS: [facility]
[2017-06-17 19:33] LABS: Anion Gap 15 mmol/L (10-20); BUN (Urea Nitrogen) 61 mg/dL (8.4-25.7); Calc. Creatinine Clearance 49 mL/min (70-130); Calcium 7.6 mg/dL (7.8-10.44); Carbon Dioxide 15 mmol/L (23-31); Chloride 95 mmol/L (98-107); Estimated GFR-MDRD 49; Glucose 180 mg/dL (83-110); Potassium 3.9 mmol/L (3.5-5.1); Sodium 121 mmol/L (136-145)
[2017-06-17] MEDS: cefTRIAXone\\ROCEPHIN 1 GM, Syringe 0.4 ML in Sterile Water 9.6 ML SLOW IVP SCH (19:47)
[2017-06-17] MEDS: Donepezil HCl 10 MG TAB PO SCH (22:04)
[2017-06-17] MEDS: Azithromycin 500 MG in Sodium Chloride 0.9% 250 ML 250 ML IVPB SCH (22:04)
[2017-06-18 06:38] LABS: INR-International Normal Ratio 1.8; Prothrombin Time 21.3 SEC (12.0-14.7)
[2017-06-18 06:51] LABS: Band 3 % (5-11); Eosinophils 1 % (0-10); Hemoglobin 11.9 g/dL (14.0-18.0); Lymphocytes 22 % (21-51); MDiff Complete? YES; Mean Corpuscular HGB CONC 33.6 g/dL (32.0-36.0); Mean Corpuscular Hemoglobin 30.5 pg (27.0-31.0); Mean Corpuscular Volume 90.7 fl (80.0-94.0); Mean Platelet Volume 10.3 fL (7.4-10.4); Monocytes 6 % (0-10); Neutrophil 68 % (42-75); Nucleated RBC 1 % (0); PLT Morphology Comment Appears Decreased; Platelet Count 30 thou/uL (130-400); RBC Distribution Width 14.1 % (11.5-14.5); Red Blood Cell (RBC) Count 3.89 mill/uL (4.70-6.10); White Blood Cell (WBC) Count 14.2 thou/uL (4.8-10.8)
[2017-06-18] MEDS: Escitalopram Oxalate 10 mg Tablet PO SCH (08:35)
[2017-06-18] MEDS: Stress 600 With Zinc 1 TAB PO SCH (08:35)
[2017-06-18] MEDS: Multivitamin W/ Minerals 1 TAB PO SCH (08:35)
[2017-06-18] MEDS: Dexamethasone 4 MG TAB PO SCH ×2 (08:35→18:10)
--- NOTE | 2017-06-18 12:58 | PDOC.PN ---
- Subjective Encounter Start Date: 06/18/17 Encounter Start Time: 07:20 Pt seen for followup re: liver metastases. No new complaints today. - Objective Resuscitation Status: Resuscitation Status DNR:Do Not Resuscitate Vital Signs & Weight: Vital Signs (12 hours) Temp Pulse Resp BP Pulse Ox 06/18/17 08:00 97.2 F L 88 16 97 06/18/17 07:45 97.2 F L 88 16 84/53 L 97 06/18/17 05:09 95 06/18/17 04:00 97.2 F L 94 23 H 96/61 95 Weight Weight 196 lb 6.91 oz I&O: 06/17/17 06/18/17 06/19/17 06:59 06:59 06:59 Intake Total 663 220 Output Total 300 Balance 363 220 Result Diagrams: 06/18/17 06:06 06/17/17 19:06 Phys Exam - Physical Examination Constitutional: NAD HEENT: moist MMs Scleral icterus Neck: supple Respiratory: clear to auscultation bilateral Cardiovascular: RRR Gastrointestinal: soft Neurological: moves all 4 limbs Psychiatric: normal affect Dx/Plan (1) Hepatic metastases Code(s): C78.7 - SECONDARY MALIG NEOPLASM OF LIVER AND INTRAHEPATIC BILE DUCT Status: Acute (2) Pneumonia Code(s): J18.9 - PNEUMONIA, UNSPECIFIED ORGANISM Status: Acute (3) Coagulopathy Status: Acute (4) Dyslipidemia Code(s): E78.5 - HYPERLIPIDEMIA, UNSPECIFIED Status: Chronic (5) HTN (hypertension) Code(s): I10 - ESSENTIAL (PRIMARY) HYPERTENSION Status: Chronic - Plan continue antibiotics, out of bed/ambulate, DVT proph w/SCDs * . INR 1.8 today, continue to monitor. Continue antibiotics as below. For biopsy of liver met early next week. Review of Systems - Review of Systems Constitutional: weakness. negative: fever, chills, sweats, malaise Respiratory: negative: Cough, Dry, Shortness of Breath, Hemoptysis, SOB with Excertion, Pleuritic Pain, Sputum, Wheezing Cardiovascular: negative: chest pain, palpitations, orthopnea, paroxysmal nocturnal dyspnea, edema, light headedness - Medications/Allergies Allergies/Adverse Reactions: Allergies Allergy/AdvReac Type Severity Reaction Status Date / Time No Known Drug Allergies Allergy Verified 06/15/17 22:06 Medications: Current Medications Acetaminophen (Tylenol) 650 mg PO Q4H PRN PRN Reason: Headache/Fever or Pain Cholecalciferol (Vitamin D3) 1,000 units PO QAM [facility] Last Admin: 06/18/17 08:35 Dose: 1,000 units Dexamethasone (Decadron) 4 mg PO BID-[facility] Last Admin: 06/18/17 08:35 Dose: 4 mg Donepezil HCl (Aricept) 10 mg PO HS [facility] Last Admin: 06/17/17 22:04 Dose: 10 mg Escitalopram Oxalate (Lexapro) 10 mg PO DAILY [facility] Last Admin: 06/18/17 08:35 Dose: 10 mg Ceftriaxone Sodium 1 gm/ (Syringe 0.4 ml/ Sterile Water) 10 mls @ 120 mls/hr SLOW IVP 2000 [facility] Last Admin: 06/17/17 19:47 Dose: 10 mls Azithromycin 500 mg/ Sodium (Chloride) 250 mls @ 250 mls/hr IVPB 2100 [facility] Last Admin: 06/17/17 22:04 Dose: 250 mls Ondansetron HCl 10 mg/ Sodium (Chloride) 55 mls @ 220 mls/hr IVPB Q8H PRN PRN Reason: .NAUSEA Dexamethasone 10 mg/ Sodium (Chloride) 51 mls @ 102 mls/hr IVPB Q8H PRN PRN Reason: .NAUSEA Iron/Minerals/Multivitamins (Theragran M) 1 tab PO DAILY [facility] Last Admin: 06/18/17 08:35 Dose: 1 tab Multivitamins/Zinc (Stress 600 With Zinc) [facility] Last Admin: 06/18/17 08:35 Dose: 1 tab Ondansetron HCl (Zofran) 4 mg IVP Q6H PRN PRN Reason: Nausea/Vomiting Sodium Chloride (Flush - Normal Saline) 10 ml IVF Q12HR [facility] Last Admin: 06/18/17 08:41 Dose: 10 ml Sodium Chloride (Flush - Normal Saline) 10 ml IVF PRN PRN PRN Reason: Saline Flush Last Admin: 06/17/17 14:25 Dose: 10 ml
[2017-06-18] MEDS ORDERED: Sodium Chloride 0.9% 500 ML IV SCH (13:00)
--- NOTE | 2017-06-18 13:38 | PRG ---
DATE OF SERVICE: 06/18/2017 SUBJECTIVE: He is lying comfortably in bed, no distress. OBJECTIVE: VITAL SIGNS: Temperature is 97.3, pulse 92, respirations 16, O2 sat 96% on 2 liters, blood pressure 83/39. HEENT: Unremarkable. NECK: No JVD. CHEST: Fairly clear. CARDIAC: S1 and S2 regular. ABDOMEN: Soft. EXTREMITIES: No edema. LABORATORY DATA: White blood cell count 14, hematocrit 35.3, platelet count 30. Sodium 120, potassi um 3.9, chloride 95, CO2 15, BUN 61, creatinine 1.4, glucose 180. ASSESSMENT: Mediastinal adenopathy with extensive metastasis to the liver. PLAN: Eventual biopsy either CT needle or bronchoscopy once platelet count and coags are corrected. Right now he is undergoing empiric therapy for small cell lung cancer.
[2017-06-18] MEDS: Donepezil HCl 10 MG TAB PO SCH (21:10)
[2017-06-18] MEDS: cefTRIAXone\\ROCEPHIN 1 GM, Syringe 0.4 ML in Sterile Water 9.6 ML SLOW IVP SCH (22:38)
[2017-06-18] MEDS: Azithromycin 500 MG in Sodium Chloride 0.9% 250 ML 250 ML IVPB SCH (22:45)
[2017-06-19 04:24] LABS: INR-International Normal Ratio 2.1; Prothrombin Time 24.5 SEC (12.0-14.7)
[2017-06-19 04:31] LABS: Hemoglobin 11.2 g/dL (14.0-18.0); Mean Corpuscular HGB CONC 34.2 g/dL (32.0-36.0); Mean Corpuscular Volume 90.7 fl (80.0-94.0); Mean Platelet Volume 10.8 fL (7.4-10.4); Platelet Count 23 thou/uL (130-400); RBC Distribution Width 14.3 % (11.5-14.5); Red Blood Cell (RBC) Count 3.63 mill/uL (4.70-6.10); White Blood Cell (WBC) Count 15.4 thou/uL (4.8-10.8)
[2017-06-19 04:39] LABS: ALT (SGPT) 1088 U/L (8-55); AST (SGOT) 1194 U/L (5-34); Alkaline Phosphatase 702 U/L (40-150); Anion Gap 18 mmol/L (10-20); BUN (Urea Nitrogen) 92 mg/dL (8.4-25.7); Bilirubin, Total 18.9 mg/dL (0.2-1.2); Calc. Creatinine Clearance 36 mL/min (70-130); Calcium 7.5 mg/dL (7.8-10.44); Carbon Dioxide 15 mmol/L (23-31); Chloride 95 mmol/L (98-107); Estimated GFR-MDRD 29; Globulin 2.3 g/dL (2.4-3.5); Glucose 113 mg/dL (83-110); Potassium 4.9 mmol/L (3.5-5.1); Protein, Total 4.3 g/dL (5.8-8.1); Sodium 123 mmol/L (136-145)
[2017-06-19 04:44] LABS: Band 4 % (5-11); Lymphocytes 23 % (21-51); MDiff Complete? YES; Monocytes 7 % (0-10); Neutrophil 66 % (42-75); Nucleated RBC 8 % (0); PLT Morphology Comment Appears Decreased
[2017-06-19] MEDS: Stress 600 With Zinc 1 TAB PO SCH (09:07)
[2017-06-19] MEDS: Escitalopram Oxalate 10 mg Tablet PO SCH (09:07)
[2017-06-19] MEDS: Dexamethasone 4 MG TAB PO SCH ×2 (09:07→18:37)
[2017-06-19] MEDS: Multivitamin W/ Minerals 1 TAB PO SCH (09:08)
[2017-06-19] MEDS ORDERED: Phytonadione 10 MG in Sodium Chloride 0.9% 50 ML IVPB SCH (11:30)
--- NOTE | 2017-06-19 12:40 | PDOC.PN ---
- Subjective Encounter Start Date: 06/19/17 Encounter Start Time: 07:20 Pt seen for followup re: liver metastases. Feels weak. No chest pain or shortness of breath. - Objective Resuscitation Status: Resuscitation Status DNR:Do Not Resuscitate MAR Reviewed: Yes Vital Signs & Weight: Vital Signs (12 hours) Temp Pulse Resp BP Pulse Ox 06/19/17 08:00 98.1 F 77 17 06/19/17 07:23 98.1 F 77 17 88/50 L 97 Weight Weight 196 lb 6.91 oz I&O: 06/18/17 06/19/17 06/20/17 06:59 06:59 06:59 Intake Total 220 1310 250 Balance 220 1310 250 Result Diagrams: 06/19/17 04:05 06/19/17 04:05 Phys Exam - Physical Examination Constitutional: NAD HEENT: oral pharynx no lesions Scleral icterus Respiratory: clear to auscultation bilateral Cardiovascular: RRR Gastrointestinal: soft Neurological: moves all 4 limbs Psychiatric: normal affect Dx/Plan (1) Hepatic metastases Code(s): C78.7 - SECONDARY MALIG NEOPLASM OF LIVER AND INTRAHEPATIC BILE DUCT Status: Acute (2) Pneumonia Code(s): J18.9 - PNEUMONIA, UNSPECIFIED ORGANISM Status: Acute (3) Coagulopathy Status: Acute (4) Dyslipidemia Code(s): E78.5 - HYPERLIPIDEMIA, UNSPECIFIED Status: Chronic (5) HTN (hypertension) Code(s): I10 - ESSENTIAL (PRIMARY) HYPERTENSION Status: Chronic - Plan plan discussed w/ family, continue antibiotics * . INR worse today at 2.1. Administer Vit K, recheck INR. Start IV fluids. Pt reports poor oral intake. Consult dietitian. Review of Systems - Review of Systems Constitutional: weakness Gastrointestinal: negative: Nausea, Vomiting, Abdominal Pain, Diarrhea, Constipation, Melena, Hematochezia - Medications/Allergies Allergies/Adverse Reactions: Allergies Allergy/AdvReac Type Severity Reaction Status Date / Time No Known Drug Allergies Allergy Verified 06/15/17 22:06 Medications: Current Medications Acetaminophen (Tylenol) 650 mg PO Q4H PRN PRN Reason: Headache/Fever or Pain Cholecalciferol (Vitamin D3) [facility] Last Admin: 06/19/17 09:07 Dose: 1,000 units Dexamethasone (Decadron) 4 mg PO BID- [facility] Last Admin: 06/19/17 09:07 Dose: 4 mg Donepezil HCl (Aricept) 10 mg PO HS [facility] Last Admin: 06/18/17 21:10 Dose: 10 mg Escitalopram Oxalate (Lexapro) 10 mg PO DAILY [facility] Last Admin: 06/19/17 09:07 Dose: 10 mg Ceftriaxone Sodium 1 gm/ (Syringe 0.4 ml/ Sterile Water) 10 mls @ 120 mls/hr SLOW IVP 2000 [facility] Last Admin: 06/18/17 22:38 Dose: 10 mls Azithromycin 500 mg/ Sodium (Chloride) 250 mls @ 250 mls/hr IVPB 2100 [facility] Last Admin: 06/18/17 22:45 Dose: 250 mls Ondansetron HCl 10 mg/ Sodium (Chloride) 55 mls @ 220 mls/hr IVPB Q8H PRN PRN Reason: .NAUSEA Dexamethasone 10 mg/ Sodium (Chloride) 51 mls @ 102 mls/hr IVPB Q8H PRN PRN Reason: .NAUSEA Sodium Chloride (Normal Saline 0.9%) 1,000 mls @ 100 mls/hr IV .Q10H [facility] Phytonadione 10 mg/ Sodium (Chloride) 51 mls @ 120 mls/hr IVPB NOW [facility] Stop: 06/19/17 13:30 Iron/Minerals/Multivitamins (Theragran M) 1 tab PO DAILY [facility] Last Admin: 06/19/17 09:08 Dose: 1 tab Multivitamins/Zinc (Stress 600 With Zinc) 1 tab PO QAM [facility] Last Admin: 06/19/17 09:07 Dose: 1 tab Ondansetron HCl (Zofran) 4 mg IVP Q6H PRN PRN Reason: Nausea/Vomiting Sodium Chloride (Flush - Normal Saline) 10 ml IVF Q12HR [facility] Last Admin: 06/19/17 09:09 Dose: 10 ml Sodium Chloride (Flush - Normal Saline) 10 ml IVF PRN PRN PRN Reason: Saline Flush Last Admin: 06/17/17 14:25 Dose: 10 ml
[2017-06-19] MEDS: Sodium Chloride 0.9% 1,000 ML IV SCH (13:47)
[2017-06-19] MEDS: cefTRIAXone\\ROCEPHIN 1 GM, Syringe 0.4 ML in Sterile Water 9.6 ML SLOW IVP SCH (20:22)
[2017-06-19] MEDS: Donepezil HCl 10 MG TAB PO SCH (21:55)
[2017-06-19] MEDS: Azithromycin 500 MG in Sodium Chloride 0.9% 250 ML 250 ML IVPB SCH (21:55)
[2017-06-20] MEDS: Sodium Chloride 0.9% 1,000 ML IV SCH (01:37)
[2017-06-20 04:56] LABS: ALT (SGPT) 1012 U/L (8-55); AST (SGOT) 863 U/L (5-34); Alkaline Phosphatase 718 U/L (40-150); Anion Gap 18 mmol/L (10-20); BUN (Urea Nitrogen) 110 mg/dL (8.4-25.7); Bilirubin, Total 20.5 mg/dL (0.2-1.2); Calc. Creatinine Clearance 32 mL/min (70-130); Calcium 7.4 mg/dL (7.8-10.44); Carbon Dioxide 14 mmol/L (23-31); Chloride 95 mmol/L (98-107); Estimated GFR-MDRD 25; Globulin 2.3 g/dL (2.4-3.5); Glucose 124 mg/dL (83-110); Potassium 5.2 mmol/L (3.5-5.1); Protein, Total 4.3 g/dL (5.8-8.1); Sodium 122 mmol/L (136-145)
[2017-06-20 05:10] LABS: Hemoglobin 14.4 g/dL (14.0-18.0); Mean Corpuscular HGB CONC 27.9 g/dL (32.0-36.0); Mean Corpuscular Hemoglobin 25.5 pg (27.0-31.0); Mean Corpuscular Volume 91.5 fl (80.0-94.0); Mean Platelet Volume 11.4 fL (7.4-10.4); Platelet Count 17 thou/uL (130-400); RBC Distribution Width 14.9 % (11.5-14.5); Red Blood Cell (RBC) Count 5.64 mill/uL (4.70-6.10); White Blood Cell (WBC) Count 16.7 thou/uL (4.8-10.8)
[2017-06-20 05:33] LABS: Band 14 % (5-11); Lymphocytes 17 % (21-51); MDiff Complete? YES; Monocytes 2 % (0-10); Neutrophil 67 % (42-75); PLT Morphology Comment Appears Decreased
[2017-06-20 06:01] LABS: INR-International Normal Ratio 2.2
[2017-06-20 08:17] VITALS: BP 59/36
[2017-06-20] MEDS ORDERED: Albumin 25% 25 GM/100 ML BOT IVPB ONE (09:43)
--- NOTE | 2017-06-20 10:05 | RAD ---
FRONTAL RADIOGRAPH CHEST: Date: 06-20-2017 Comparison: 06-17-17 History: Evaluate lung parenchyma, multifocal pulmonary parenchymal opacity noted on prior study. FINDINGS: There is airspace disease in the right perihilar/superior hilar region extending laterally into the m id right lung zone, similar when compared to 06-17-17. There is patchy opacity in the left lung base with partial obscuration of left hemidiaphragm and blunting of the left costophrenic angle suggesting nonspecific pleural and parenchymal opacity, stable as well. There is mild elevation of right hemidi aphragm. IMPRESSION: Stable focal areas of pulmonary parenchymal opacity noted in the right perihilar region/mid right marquis g zone and the left lung base. Follow up to resolution is advised. Findings are better seen on chest CT performed on 06-07-17, which reveals a right upper lobe/right hilar mass lesion concerning for lym phadenopathy and malignancy. POS: [facility]
[2017-06-20 11:40] VITALS: TEMP 98
--- NOTE | 2017-06-20 14:38 | DS ---
PRIMARY CARE PHYSICIAN: Katelyn Carr MD DATE OF ADMISSION: 06/15/2017 DATE OF : 06/20/2017 DISCHARGE DIAGNOSES: 1. Liver metastases. 2. 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 3. Thrombocytopenia. 4. Hyponatremia. 5. Abnormal liver function tests. CONSULTATIONS DURING THIS HOSPITALIZATION: Pulmonology, Dr. Anson Pitts and Oncology, Dr. Shereen loaiza. HOSPITAL COURSE: Mr. Ríos is a pleasant 76-year-old gentleman who was admitted to [facility] on 06/15/2017 for liver metastases. He also had a large right suprahilar mass wit h suspected lymphangitic spread of the tumor into the right upper lobe and regional lymph nodes. He was seen by Pulmonology Service. Plan was to obtain tissue biopsy from liver mets. However, he h ad elevated INR. It was 2.5 on 06/16/2017. Following administration of vitamin K, it decreased to 1 .8 on 06/18/2017, but subsequently worsened to 2.2 on 06/20/2017. He was seen by Dr. Tavarez from Oncology Service. After discussion with family, he received a dose of carboplatin for suspected small cell lung cancer. Palliative care service was consulted as well. After discussion with family, patient's code status w as designated as DO NOT RESUSCITATE. Palliative Care Service continued to follow the patient during this hospitalization. On 06/20/2017, Mr. Ríos was found to have hypotension as well as shallow breathing. Chest x-ray d id not reveal any acute change compared to prior chest x-ray. After discussion with patient's , she did not want any aggressive measures of treatment. Mr. Ríos at 10:20 a.m. on 06/20/2017. Many thanks for allowing me to participate in your patient's care. Please feel free to contact me wi th any questions or concerns.
== END 2017-06-20 10:20 | disposition expired | DRG 435 ==
LOC: ERS 11:52 → ONC 17:32
PROVIDERS: ADMIT Internal Medicine; ATTEND Internal Medicine
PROC: 3E03305 Introduction of Other Antineoplastic into Peripheral Vein, Percutaneous Approach (ICD-10-PCS; principal; 2017-06-17)
PROC: 3E0333Z Introduction of Anti-inflammatory into Peripheral Vein, Percutaneous Approach (ICD-10-PCS; 2017-06-17)
PROC: 3E033GC Introduction of Other Therapeutic Substance into Peripheral Vein, Percutaneous Approach (ICD-10-PCS; 2017-06-17)
DX: C78.7 Secondary malignant neoplasm of liver and intrahepatic bile duct (principal); J18.9 Pneumonia, unspecified organism; N17.9 Acute kidney failure, unspecified; I95.9 Hypotension, unspecified; D69.6 Thrombocytopenia, unspecified; R17 Unspecified jaundice; E87.1 Hypo-osmolality and hyponatremia; C34.90 Malignant neoplasm of unspecified part of unspecified bronchus or lung; I35.0 Nonrheumatic aortic (valve) stenosis; I10 Essential (primary) hypertension; E78.00 Pure hypercholesterolemia, unspecified; Z87.891 Personal history of nicotine dependence; Z51.5 Encounter for palliative care; Z66 Do not resuscitate; F32.9 Major depressive disorder, single episode, unspecified; E78.5 Hyperlipidemia, unspecified; I46.9 Cardiac arrest, cause unspecified
CPT/HCPCS: 36415; 70470; 71010; 71045; 78306; 80053; 81003; 81015; 82274; 82553; 83605; 83690; 83880; 84484; 85025; 85610; 85730; 87040; 87086; 93005; 94640; 96360; A4216; A9503; J0456; J0696; J1100; J1940; J2405; J3430; J7050; J7611; J8540; J9045